=== PATIENT | female | born 1995 | race Caucasian/White ===

== ENCOUNTER 2019-03-07 20:26 | Emergency (ER) | payer OTHER ==
[~2019-03-07] VITALS: Ht 165.1 cm; Wt 90.7 kg
[2019-03-07] MEDS ORDERED: NORFLEX100 MG PO (21:17)
[2019-03-07] MEDS ORDERED: NORCO 5-325 TA1 EAC1 PO (21:17)
[2019-03-07] MEDS ORDERED: PREDNISONE 10 M10 MG PO (21:17)
[2019-03-07 22:03] VITALS: BP 135/66
== END 2019-03-07 22:04 | disposition home or self-care (01) ==
LOC: ER 20:26
DX: M54.5 Low back pain (principal); F17.210 Nicotine dependence, cigarettes, uncomplicated

== ENCOUNTER 2019-04-16 22:52 | Emergency (ER) | payer OTHER ==
[~2019-04-16] VITALS: Ht 165.1 cm; Wt 90.7 kg
[~2019-04-16 22:52] MED LIST: NORCO 5-325 TA1 EAC1 PO; NORFLEX100 MG PO; PREDNISONE 10 M10 MG PO
[2019-04-17] MEDS ORDERED: HYDROCODON-ACE1 EAC7 PO (01:25)
[2019-04-17 01:38] VITALS: BP 93/48
== END 2019-04-17 01:40 | disposition home or self-care (01) ==
LOC: ER 22:52
DX: M54.5 Low back pain (principal); G89.29 Other chronic pain; F17.210 Nicotine dependence, cigarettes, uncomplicated

== ENCOUNTER 2019-05-18 17:59 | Emergency (ER) | payer OTHER ==
[~2019-05-18] VITALS: Ht 162.6 cm; Wt 90.7 kg
[~2019-05-18 17:59] MED LIST changes: +HYDROCODON-ACE1 EAC7 PO
[2019-05-18 18:02] VITALS: BP 159/107
== END 2019-05-18 20:14 | disposition left against medical advice (07) ==
LOC: ER 17:59
DX: M54.5 Low back pain (principal); R32 Unspecified urinary incontinence; F17.210 Nicotine dependence, cigarettes, uncomplicated